=== PATIENT | female | born 1950 | race American Indian/Alaskan Native ===

== ENCOUNTER 2016-10-20 16:10 | Emergency (ER) | payer MEDICARE ==
--- NOTE | 2016-10-20 17:32 | Emergency Department Report ---
Chief Complaint: Abdominal Pain Stated Complaint: STOMACH PAIN Time Seen by Provider: 10/20/16 17:26 - HPI History of Present Illness: Patient is a 66-year-old female who presents to ED complaining of lower abdominal pain 3 days. Patient states abdominal pain began on Monday and is twisting throbbing cramping in nature. Patient states she had abdominal surgery in August last year. Patient states normal bowel movement daily. She says she has pain with urination. But no blood in urine She rates abdominal pain at 10/10 at its worse but not at the moment. Nonbloody. Patient denies nausea vomiting. Patient denies fever. - ROS Review of Systems: As noted in HPI - Exam Vital Signs: Vital Signs 10/20/16 17:13 Temperature 98.6 F Pulse Rate 76 Respiratory 18 Rate Blood Pressure 162/80 O2 Sat by Pulse 98 Oximetry Physical Exam: GENERAL: Alert and oriented x3, no apparent distress, Normal Gait, atraumatic. LUNGS: Symetrical with respiration, No wheezing, no rales or crackles, CTAB. HEART: S1, S2 present, regular rate and rhythm without murmur, no rubs, no gallops. ABDOMEN: No organomegaly was noted,Positive bowel sounds, soft, and non- distended. . Nontender to palpation on all Quadrants, NO CVA tenderness. MSE screening note: Focused history and physical exam performed. Due to findings the following was ordered: ED Medical Decision Making - Medical Decision Making Lab protocol ordered. Patient to be seen. ED Disposition for MSE Condition: Stable Instructions: Abdominal Pain (ED)
[2016-10-20 18:31] LABS: Hematocrit 37.2 % (30.3-42.9); Hemoglobin 12.7 gm/dl (10.1-14.3); Mean Corpuscular HGB Conc 34 % (30-34); Mean Corpuscular Hemoglobin 30 pg (28-32); Mean Corpuscular Volume 89 fl (79-97); Platelet Count 161 K/mm3 (140-440); Red Cell Distribution Width 15.1 % (13.2-15.2); White Blood Count 7.8 K/mm3 (4.5-11.0)
[2016-10-20 18:38] LABS: Bacteria,Urine 1+ /HPF (Negative); Bilirubin,Urine NEG (Negative); Blood,Urine NEG (Negative); Ketones,Urine NEG (Negative); Leukocyte Esterase,Urine NEG (Negative); Mucus,Urine FEW /HPF; Nitrite,Urine NEG (Negative); Protein,Urine <15 mg/dL mg/dL (Negative); Urobilinogen,Urine < 2.0 mg/dL (<2.0)
[2016-10-20 18:48] LABS: Anion Gap 18 mmol/L; BUN/Creatinine Ratio 11.66; Blood Urea Nitrogen 7 mg/dL (7-17); Calcium 9.2 mg/dL (8.4-10.2); Carbon Dioxide 26 mmol/L (22-30); Chloride 97.5 mmol/L (98-107); Glucose 114 mg/dL (65-100); Potassium 4.1 mmol/L (3.6-5.0); Sodium 137 mmol/L (137-145)
[2016-10-21] MEDS ORDERED: MORPHINE IV ONE (00:14)
[2016-10-21] MEDS ORDERED: ZOFRAN IV ONE (00:14)
[2016-10-21] MEDS ORDERED: NACL ONE (00:47)
--- NOTE | 2016-10-21 00:50 | Emergency Department Report ---
ED Abdominal Pain HPI - General Chief Complaint: Abdominal Pain Stated Complaint: STOMACH PAIN Time Seen by Provider: 10/20/16 17:26 Source: patient Mode of arrival: Ambulatory Limitations: No Limitations - History of Present Illness Initial Comments: 56 yo female with a past medical history of CVA, hypertension, diverticulitis, A. fib, and bowel structures and previous appendectomy and cholecystectomy presents to the hospital with complaints of abdominal pain. Pain is in the lower abdominal area, cramping with intermittent sharp component. Rated 5/10 in intensity pain is worse with palpation. No alleviating factors. Patient denies nausea, vomiting, or fever. Patient thought she was constipated and therefore took milk of magnesia and has had several bowel movements since. No reports of melena or hematochezia. Patient is tolerating by mouth intake. - Related Data Home Medications Medication Instructions Recorded Confirmed Last Taken Aspirin [Aspirin TAB] 325 mg PO DAILY 08/14/15 04/26/16 08/26/15 10:00 AtorvaSTATin [Lipitor] 10 mg PO DAILY 08/14/15 04/26/16 08/26/15 21:00 Dexlansoprazole [Dexilant] 120 mg PO DAILY 08/14/15 04/26/16 08/26/15 10:00 Gabapentin [Neurontin] 800 mg PO TID 08/14/15 04/26/16 08/26/15 21:00 Hydrochlorothiazide [HCTZ] 25 mg PO QDAY 08/14/15 04/26/16 08/26/15 10:00 Metoprolol [Lopressor] 75 mg PO BID 08/14/15 04/26/16 08/27/15 10:30 Potassium Chloride [Klor-Con] 20 meq PO DAILY 08/14/15 04/26/16 08/26/15 10:00 Valsartan [Diovan] 320 mg PO QDAY 08/14/15 04/26/16 08/27/15 10:30 Dronedarone HCl [Multaq] 400 mg PO BID 08/27/15 04/26/16 08/27/15 10:30 Previous Rx's Medication Instructions Recorded Last Taken Type Levofloxacin [Levaquin TAB] 750 mg PO ONCE #10 tablet 10/21/16 Unknown Rx metroNIDAZOLE [Flagyl TAB] 500 mg PO TID #30 tablet 10/21/16 Unknown Rx traMADol [Ultram 50 MG tab] 50 mg PO Q6HR PRN #20 tablet 10/21/16 Unknown Rx Allergies Allergy/AdvReac Type Severity Reaction Status Date / Time lisinopril Allergy Anaphylaxis Verified 10/20/16 17:13 pseudoephedrine HCl Allergy Hives Verified 10/20/16 17:13 [From [facility]] ED Review of Systems ROS: Stated complaint: STOMACH PAIN Other details as noted in HPI Comment: All other systems reviewed and negative Other: Constitutional: No fevers chills Eyes: No eye pain visual changes ENT: No ear pain or throat pain Neck: Denies pain Respiratory: Denies cough wheezing shortness of breath Cardiovascular: Denies chest pain, palpitations, syncope GI: As per HPI : Denies dysuria Musculoskeletal: Denies back pain Skin: Denies rash, lesions, erythema Neurologic: Denies headache, numbness, weakness Psychiatric: Denies suicidal ideation, hallucinations Hematological/lymphatic: Denies easy bruising, lymphadenopathy ED Past Medical Hx - Past Medical History Hx Hypertension: Yes Hx CVA: Yes (x2 "mild") Hx Heart Attack/AMI: No Hx Congestive Heart Failure: No Hx Diabetes: No Hx Deep Vein Thrombosis: No Hx Liver Disease: No Hx Renal Disease: No Hx Seizures: No Hx Asthma: No Hx COPD: No Additional medical history: diverticulosis, vertigo. ATRIAL FIBRILLATION. BOWEL OBSTRUCTION - Surgical History Hx Pacemaker: No Hx Internal Defibrillator: No Hx Cholecystectomy: Yes Hx Appendectomy: Yes Additional Surgical History: hystocsopy, R hand - Social History Smoking Status: Light Tobacco Smoker - Medications Home Medications: Home Medications Medication Instructions Recorded Confirmed Last Taken Type Aspirin [Aspirin TAB] 325 mg PO DAILY 08/14/15 04/26/16 08/26/15 10:00 History AtorvaSTATin [Lipitor] 10 mg PO DAILY 08/14/15 04/26/16 08/26/15 21:00 History Dexlansoprazole [Dexilant] 120 mg PO DAILY 08/14/15 04/26/16 08/26/15 10:00 History Gabapentin [Neurontin] 800 mg PO TID 08/14/15 04/26/16 08/26/15 21:00 History Hydrochlorothiazide [HCTZ] 25 mg PO QDAY 08/14/15 04/26/16 08/26/15 10:00 History Metoprolol [Lopressor] 75 mg PO BID 08/14/15 04/26/16 08/27/15 10:30 History Potassium Chloride [Klor-Con] 20 meq PO DAILY 08/14/15 04/26/16 08/26/15 10:00 History Valsartan [Diovan] 320 mg PO QDAY 08/14/15 04/26/16 08/27/15 10:30 History Dronedarone HCl [Multaq] 400 mg PO BID 08/27/15 04/26/16 08/27/15 10:30 History Levofloxacin [Levaquin TAB] 750 mg PO ONCE #10 tablet 10/21/16 Unknown Rx metroNIDAZOLE [Flagyl TAB] 500 mg PO TID #30 tablet 10/21/16 Unknown Rx traMADol [Ultram 50 MG tab] 50 mg PO Q6HR PRN #20 tablet 10/21/16 Unknown Rx ED Physical Exam - General Limitations: No Limitations - Other Other exam information: General: No limitations, patient is alert in no acute distress Head exam: Atraumatic, normocephalic Eyes exam: Normal appearance ENT: Moist mucous membrane, normal oropharynx Neck exam: Normal inspection, full range of motion Respiratory exam: Clear to auscultation bilateral, no wheezes, rales, crackles Cardiovascular: Normal rate and rhythm, normal heart sounds Abdomen: Soft, nondistended, midline vertical surgical scar below the umbilicus. Tenderness along the lower abdomen to palpation. Normal bowel sounds, no rebound, or guarding Extremity: Full range of motion normal inspection no deformity Back: Normal Inspection, full range of motion, no tenderness Neurologic: Alert, oriented x3, cranial nerves intact, no motor or sensory deficit Psychiatric: normal affect, normal mood Skin: Warm, dry, intact ED Course Vital Signs 10/20/16 10/21/16 17:13 00:00 Temperature 98.6 F Pulse Rate 76 79 Respiratory 18 20 Rate Blood Pressure 162/80 Blood Pressure 151/76 [Left] O2 Sat by Pulse 98 97 Oximetry - Reevaluation(s) Reevaluation #1: 10/21/16 00:49 Morphine and Zofran ordered for pain. CT pending ED Medical Decision Making - Lab Data Result diagrams: 10/20/16 18:14 10/20/16 18:14 Lab Results 10/20/16 10/20/16 10/20/16 Range/Units 18:10 18:10 18:14 WBC 7.8 (4.5-11.0) K/mm3 RBC 4.20 (3.65-5.03) M/mm3 Hgb 12.7 (10.1-14.3) gm/dl Hct 37.2 (30.3-42.9) % MCV 89 (79-97) fl MCH 30 (28-32) pg MCHC 34 (30-34) % RDW 15.1 (13.2-15.2) % Plt Count 161 (140-440) K/mm3 Sodium (137-145) mmol/L Potassium (3.6-5.0) mmol/L Chloride (98-107) mmol/L Carbon Dioxide (22-30) mmol/L Anion Gap mmol/L BUN (7-17) mg/dL Creatinine (0.7-1.2) mg/dL Estimated GFR ml/min BUN/Creatinine Ratio % Glucose (65-100) mg/dL Calcium (8.4-10.2) mg/dL Amylase (27-131) units/L Lipase (13-60) units/L HCG, Qual Negative (Negative) Urine Color Yellow (Yellow) Urine Turbidity Clear (Clear) Urine pH 8.0 H (5.0-7.0) Ur Specific [place] 1.009 (1.003-1.030) Urine Protein <15 mg/dl (Negative) mg/dL Urine Glucose (UA) Neg (Negative) mg/dL Urine Ketones Neg (Negative) mg/dL Urine Blood Neg (Negative) Urine Nitrite Neg (Negative) Urine Bilirubin Neg (Negative) Urine Urobilinogen < 2.0 (<2.0) mg/dL Ur Leukocyte Esterase Neg (Negative) Urine WBC (Auto) 0.0 (0.0-6.0) /HPF Urine RBC (Auto) 0.0 (0.0-6.0) /HPF U Epithel Cells (Auto) 2.0 (0-13.0) /HPF Urine Bacteria (Auto) 1+ (Negative) /HPF Urine Mucus Few /HPF 10/20/16 10/20/16 10/20/16 Range/Units 18:14 18:14 18:14 WBC (4.5-11.0) K/mm3 RBC (3.65-5.03) M/mm3 Hgb (10.1-14.3) gm/dl Hct (30.3-42.9) % MCV (79-97) fl MCH (28-32) pg MCHC (30-34) % RDW (13.2-15.2) % Plt Count (140-440) K/mm3 Sodium 137 (137-145) mmol/L Potassium 4.1 (3.6-5.0) mmol/L Chloride 97.5 L (98-107) mmol/L Carbon Dioxide 26 (22-30) mmol/L Anion Gap 18 mmol/L BUN 7 (7-17) mg/dL Creatinine 0.6 L (0.7-1.2) mg/dL Estimated GFR > 60 ml/min BUN/Creatinine Ratio 11.66 % Glucose 114 H (65-100) mg/dL Calcium 9.2 (8.4-10.2) mg/dL Amylase 62 (27-131) units/L Lipase 12 L (13-60) units/L HCG, Qual (Negative) Urine Color (Yellow) Urine Turbidity (Clear) Urine pH (5.0-7.0) Ur Specific [place] (1.003-1.030) Urine Protein (Negative) mg/dL Urine Glucose (UA) (Negative) mg/dL Urine Ketones (Negative) mg/dL Urine Blood (Negative) Urine Nitrite (Negative) Urine Bilirubin (Negative) Urine Urobilinogen (<2.0) mg/dL Ur Leukocyte Esterase (Negative) Urine WBC (Auto) (0.0-6.0) /HPF Urine RBC (Auto) (0.0-6.0) /HPF U Epithel Cells (Auto) (0-13.0) /HPF Urine Bacteria (Auto) (Negative) /HPF Urine Mucus /HPF - Radiology Data Radiology results: report reviewed (CT abdomen and pelvis IV contrast: Extensive sigmoid colon diverticulosis.Moderate inflammatory stranding of the fat around the proximal segment: Suggesting new acute moderate diverticulitis or focal colitis. Less likely, carcinoma could appear this way short tone follow-up recommended.), image reviewed (abdominal x-ray: No acute findings) - Medical Decision Making Patient treated with Levaquin and Flagyl in the ED for mild diverticulitis. H reports feeling better with eating treatment. We discharged home with antibiotics. - Differential Diagnosis constipation, diverticulitis, obstruction, Critical Care Time: No Critical care attestation.: If time is entered above; I have spent that time in minutes in the direct care of this critically ill patient, excluding procedure time. ED Disposition Clinical Impression: Diverticulitis Disposition: DISCHARGED TO HOME OR SELFCARE Is pt being admited?: No Does the pt Need Aspirin: No Condition: Stable Instructions: Diverticulitis Diet (ED), Diverticulitis (ED) Additional Instructions: Take the antibodies as prescribed. Return if symptoms worsen. Your CAT scan shows diverticulitis. There is an area in the colon that is abnormal and likely due to inflammation however, colon carcinoma could appear similar on CAT scan (although as less likely. Therefore the radiologist recommends outpatient follow-up with a GI doctor for further evaluation including colonoscopy. I have provided a copy of your report for follow up. Prescriptions: Levofloxacin [Levaquin TAB] 750 mg PO ONCE #10 tablet metroNIDAZOLE [Flagyl TAB] 500 mg PO TID #30 tablet traMADol [Ultram 50 MG tab] 50 mg PO Q6HR PRN #20 tablet PRN Reason: Pain Referrals: FABIEN BORREGO MD [Staff Physician] - 3-5 Days (Gi doctor ) Time of Disposition: 03:36
[2016-10-21 00:59] VITALS: BP 151/76
--- NOTE | 2016-10-21 03:02 | Cat Scan Report ---
FINAL REPORT PROCEDURE: CT ABDOMEN PELVIS W CON TECHNIQUE: Computerized axial tomography of the abdomen and pelvis was performed after the IV injection of iodinated nonionic contrast. Oral contrast was not given. HISTORY: Lower abdominal pain and cramping. History of diverticulitis and small-bowel obstruction. COMPARISON: No prior studies are available for comparison. FINDINGS: Visualized lower thorax: Moderate atelectasis and or fibrotic change noted in both bases.. Liver: Normal size and attenuation. Spleen: Heterogenous appearance on initial phase only is likely due to contrast flux. Gallbladder and biliary system: There has been a cholecystectomy. Pancreas: Normal. Adrenals: Normal. Kidneys: Normal. GI tract: There is extensive sigmoid colon diverticulosis which has been seen previously. However on the current scan there is new moderate inflammatory stranding in the fat around the proximal sigmoid colon suggesting acute diverticulitis or focal colitis. There is no evidence of associated abscess at this time. The remainder the bowel appears unremarkable when considering lack of oral contrast. However the appendix cannot be identified with certainty. Moderate apparent gastric wall thickening is nonspecific but may simply be due to lack of distention of the stomach. Vasculature: Normal. Bladder: Normal. Reproductive organs: Normal. Peritoneum: There is no CT evidence of free air free fluid. Musculoskeletal structures: Mild bony degenerative change. Other: None. IMPRESSION: 1. There is extensive sigmoid colon diverticulosis. In addition there is new moderate inflammatory stranding in the fat around the proximal sigmoid colon suggesting new acute moderate diverticulitis or focal colitis. Although less likely, colon carcinoma could appear this way and therefore short-term follow-up recommended to make sure this resolves. Colonoscopy may be may also be indicated as clinically determined to further evaluate 2. At this time there is no CT evidence of abscess or free air or free fluid. 3. The appendix cannot be identified. 4. Prior cholecystectomy
[2016-10-21] MEDS ORDERED: FLAGYL PO ONE (03:15)
[2016-10-21] MEDS ORDERED: LEVAQUIN PO ONE (03:15)
--- NOTE | 2016-10-21 07:21 | XRay Report ---
Flat and upright of the abdomen: History: Pain. Findings: Moderate amount of air is seen in ascending, descending and transverse colon with multiple small air fluid levels. No distention or wall thickening. Minimal air in small bowel. Air is also identified in the rectum. No radiopaque calculus or abnormal calcification. Impression: Nonspecific findings. Possibility of enteritis or early ileus cannot be excluded. If clinically indicated CT scan may be advised.
== END 2016-10-21 04:09 | disposition home or self-care (01) ==
LOC: ED 16:10
DX: K57.92 Diverticulitis of intestine, part unspecified, without perforation or abscess without bleeding (principal); I10 Essential (primary) hypertension; Z86.73 Personal history of transient ischemic attack (TIA), and cerebral infarction without residual deficits; F17.200 Nicotine dependence, unspecified, uncomplicated
CPT/HCPCS: 36415; 74020; 74177; 80048; 81001; 82150; 83690; 84703; 85027; 96374; 96375; 99284; J2270; J2405; Q9967

== ENCOUNTER 2016-11-03 13:52 | Outpatient (CLI) | payer MEDICARE ==
--- NOTE | 2016-11-03 14:35 | Mammography Report ---
BONE DENSITY STUDY: DEFINITIONS: BMD = Bone Mineral Density T-score = BMD related to mean peak bone mass of young adult (mean expressed in Standard Deviation) Z-score = Age matched BMD expressed in SD World Health Organization (WHO) Diagnostic Criteria Normal T-score > -1 SD Osteopenia T-score between -1 and -2.4 SD Osteoporosis T-score -2.5 SD or below FINDINGS: The weighted average BMD of lumbar spine L1-L4 is 1.0-2 with a T-score of -0.3. The weighted average BMD of hip is 1.015 with a T-score of 0.6. IMPRESSION: The patient's T-score is diagnostic for normal bone density and low relative risk for fracture. NOTE: BMD is not the only risk factor for fracture; also consider factors such as the patient's age, risk of falling, previous osteoporotic fracture, family history of osteoporotic fractures, current smoker, and low body weight. Verma's triangle is a region of interest in femur, predominantly of trabecular bone. It is not a true anatomic site, and ISCD does not recommend its use clinically.
== END 2016-11-03 13:53 | disposition home or self-care (01) ==
LOC: MAMMO 13:52
PROVIDERS: ATTEND Internal Medicine
DX: Z13.820 Encounter for screening for osteoporosis (principal); I10 Essential (primary) hypertension; D53.8 Other specified nutritional anemias; E78.2 Mixed hyperlipidemia
CPT/HCPCS: 77080

== ENCOUNTER 2019-04-05 11:57 | Outpatient (CLI) | payer MEDICARE ==
--- NOTE | 2019-04-05 15:06 | Mammography Report ---
DIGITAL SCREENING MAMMOGRAM WITH CAD, 04/05/2019 INDICATION: Routine screening mammography. TECHNIQUE: Digital bilateral 2D mammography was obtained in the craniocaudal and mediolateral obliq ue projections. This examination was interpreted with the benefit of Computer-Aided Detection analysi s. COMPARISON: 03/16/2016 FINDINGS: Breast Density: There are scattered areas of fibroglandular density. There is no evidence of dominant mass, suspicious calcifications or architectural distortion in eithe r breast. IMPRESSION: No mammographic evidence of malignancy. Follow up recommendation: Routine yearly BI-RADS Category 1: Negative. A "normal" or negative report should not discourage follow up or biopsy of a clinically significant f inding. A written summary of these findings will be mailed to the patient. The patient will be entered into a mammography reporting system which will generate a reminder letter for the patient's next appointmen t at the appropriate interval. The [employer] recommends yearly mammograms starting at age 40 and continuing as l heather as a woman is in good health. Breast MRI is recommended for women with an approximate 20-25% or greater lifetime risk of breast cancer, including women with a strong family history of breast or ova nikki cancer or who have been treated for Hodgkin's disease. Signer Name: Sergio Castano MD Signed: 04/05/2019 3:02 PM Workstation Name: [id number]
== END 2019-04-05 11:58 | disposition home or self-care (01) ==
LOC: MAMMO 11:57
PROVIDERS: ATTEND Internal Medicine
DX: Z12.31 Encounter for screening mammogram for malignant neoplasm of breast (principal); I10 Essential (primary) hypertension
CPT/HCPCS: 77067

== ENCOUNTER 2019-09-06 13:29 | Outpatient (CLI) | payer MEDICARE ==
--- NOTE | 2019-09-06 16:01 | Cat Scan Report ---
CT CHEST WITHOUT CONTRAST INDICATION / CLINICAL INFORMATION: EVAL AORTIC ANEURYSM/Z13.6 Encounter for screening for cardiovasc . TECHNIQUE: Axial CT images were obtained through the chest without contrast. Sagittal and coronal reformatted im ages. All CT scans at this location are performed using CT dose reduction for ALARA by means of autom ated exposure control. COMPARISON: None available. FINDINGS: HEART: Heart size is borderline. No pericardial effusion. THORACIC AORTA: The ascending aorta measures 3.7 cm in diameter. The descending thoracic aorta measur es 2.9 cm. The aortic arch measures 2.8 cm. No significant aneurysmal dilatation. MEDIASTINUM and YVETTE: There are a couple of mildly prominent paratracheal lymph nodes measuring up to 2.2 x 1.3 cm. Calcified subcarinal and lateral hilar lymph nodes are noted. LUNGS: Mild air trapping is demonstrated in the upper lung zones. No evidence for pneumonia, mass or interstitial lung disease. Few scattered calcified granulomas are noted in both lungs. PLEURA: No significant pleural effusion. No pneumothorax. SKELETAL SYSTEM: No significant abnormality. UPPER ABDOMEN: No significant abnormality. ADDITIONAL FINDINGS: None. IMPRESSION: Borderline heart size. No evidence for chronic granulomatous disease. No acute process is identified. Aortic measurements as described. No thoracic aortic aneurysm. Signer Name: Mike Gaston Jr, MD Signed: 09/06/2019 3:57 PM Workstation Name: [id number]
== END 2019-09-06 13:30 | disposition home or self-care (01) ==
LOC: CT 13:29
PROVIDERS: ATTEND Internal Medicine
DX: J84.10 Pulmonary fibrosis, unspecified (principal); J98.4 Other disorders of lung; Z13.6 Encounter for screening for cardiovascular disorders
CPT/HCPCS: 71250

== ENCOUNTER 2021-03-16 10:53 | Emergency (ER) | payer MEDICARE ==
[2021-03-16 11:04] VITALS: BP 194/74
--- NOTE | 2021-03-16 11:13 | Event Note ---
ED Screening Note Date of service: 03/16/21 Time: 11:07 ED Screening Note: Patient with history of CHF and COPD presents with complaints of shortness of breath This initial assessment/diagnostic orders/clinical plan/treatment(s) is/are subject to change based on patients health status, clinical progression and re- assessment by fellow clinical providers in the ED. Further treatment and workup at subsequent clinical providers discretion. Patient/guardian urged not to elope from the ED as their condition may be serious if not clinically assessed and managed. Initial orders include:
[2021-03-16 11:43] LABS: Basophils % (Auto) 0.2 % (0.0-1.8); Eosinophils # (Auto) 0.1 K/mm3 (0.0-0.4); Eosinophils % (Auto) 1.6 % (0.0-4.3); Hematocrit 36.4 % (30.3-42.9); Lymphocytes # (Auto) 1.8 K/mm3 (1.2-5.4); Lymphocytes % (Auto) 24.3 % (13.4-35.0); Mean Corpuscular HGB Conc 33 % (30-34); Mean Corpuscular Volume 90 fl (79-97); Monocytes # (Auto) 0.5 K/mm3 (0.0-0.8); Monocytes % (Auto) 7.3 % (0.0-7.3); Platelet Count 171 K/mm3 (140-440); Red Blood Count 4.04 M/mm3 (3.65-5.03); Red Cell Distribution Width 19.1 % (13.2-15.2)
[2021-03-16 12:03] LABS: Alanine Aminotransferase 22 units/L (7-56); Albumin 3.8 g/dL (3.9-5); Blood Urea Nitrogen 8 mg/dL (7-17); Calcium 9.5 mg/dL (8.4-10.2); Hemolysis Index 5
[2021-03-16 12:09] LABS: BUN/Creatinine Ratio 13
--- NOTE | 2021-03-16 12:09 | XRay Report ---
CHEST 2 VIEWS INDICATION: chest pain. COMPARISON: 03/07/2020 FINDINGS: Support devices: None. Heart: Stable borderline heart size. Lungs/pleura: Mild bilateral interstitial edema is again suspected which appears slightly increased s irving the previous exam. No evidence for pneumonia, pleural effusion or pneumothorax. Additional findings: None. IMPRESSION: Borderline heart size and mild pulmonary congestion. No CHF. Signer Name: Mike Gaston Jr, MD Signed: 03/16/2021 12:03 PM Workstation Name: [id number]
--- NOTE | 2021-03-17 10:41 | Electrocardiograph Report ---
[facility] Test Date: 2021-03-16 Test Time: 11:10:42 Pat Name: TUSHAR JUNE Department: Room: Gender: F Senior It Specialist: : 1950 Requested By: MONI CASEY Order Number: [id number] Reading MD: Armond Landa Measurements Intervals [place] Rate: 74 P: 70 MS: 179 QRS: 42 QRSD: 90 T: 47 QT: 448 QTc: 497 Interpretive Statements Sinus rhythm No previous ECG available for comparison Electronically Signed On 03-17-2021 10:41:00 EDT by Armond Landa
== END 2021-03-16 21:00 | disposition left against medical advice (07) ==
LOC: ED 10:53
DX: R06.02 Shortness of breath (principal); Z53.21 Procedure and treatment not carried out due to patient leaving prior to being seen by health care provider
CPT/HCPCS: 36415; 71046; 80053; 83880; 84484; 85025; 93005